=== PATIENT | male | born 1985 | race Caucasian/White ===

== ENCOUNTER → 2017-08-16 | Outpatient (CLI) | payer BC ==
[2017-08-16 08:58] LABS: ALT 50 U/L (21-72); AST 25 U/L (17-59); Albumin 4.5 g/dL (3.5-5.0); Alkaline Phosphatase 46 U/L (38-126); Anion Gap 11 mmol/L; Blood Urea Nitrogen 11 mg/dL (9-20); Calcium 9.8 mg/dL (8.4-10.2); Carbon Dioxide 27 mmol/L (22-30); Chloride 105 mmol/L (98-107); Cholesterol 173 mg/dL (<200); Glucose 94 mg/dL (74-99); HDL Cholesterol 40 mg/dL (40-60); LDL Cholesterol,Calculated 100 mg/dL (0-99); Potassium 4.5 mmol/L (3.5-5.1); Sodium 143 mmol/L (137-145); Total Bilirubin 0.7 mg/dL (0.2-1.3); Total Protein 7.1 g/dL (6.3-8.2); Triglycerides 167 mg/dL (<150)
[2017-08-16 09:01] LABS: Basophils % (A) 1 %; Eosinophils # (A) 0.1 k/uL (0-0.7); Eosinophils % (A) 3 %; HGB 15.2 gm/dL (13.0-17.5); Lymphocytes # (A) 2.3 k/uL (1.0-4.8); Lymphocytes % (A) 45 %; MCH 27.6 pg (25.0-35.0); MCHC 34.5 g/dL (31.0-37.0); MCV 79.9 fL (80.0-100.0); Mean Platelet Volume 7.5; Monocytes # (A) 0.3 k/uL (0-1.0); Monocytes % (A) 6 %; Neutrophils # (A) 2.2 k/uL (1.3-7.7); Neutrophils % (A) 43 %; Platelet Count 233 k/uL (150-450); RBC 5.51 m/uL (4.30-5.90); RDW 13.8 % (11.5-15.5); WBC 5.1 k/uL (3.8-10.6)
== END | disposition home or self-care (01) ==
LOC: LABWHC1 08:32
PROVIDERS: ATTEND Nurse Practitioner Primary Care
DX: Z00.00 Encounter for general adult medical examination without abnormal findings (principal)
CPT/HCPCS: 36415; 80053; 80061; 82306; 84443; 85025

== ENCOUNTER 2020-03-20 12:09 | Emergency (ER) | payer BC, OTHER ==
[2020-03-20 12:33] VITALS: BP 155/106; PULSE 84; RESP 18; TEMP 98
[2020-03-20] MEDS ORDERED: FLUORESCEIN STRIPS 1 MG STRIP RIGHT EYE STA (12:42)
[2020-03-20] MEDS ORDERED: PROPARACAINE 0.5% OPHTH DROPS 15 ML BTL RIGHT EYE STA (12:43)
[2020-03-20] MEDS ORDERED: ERYTHROMYCIN 5 MG/GM OPHTH OINT 1 GM TUBE RIGHT EYE STA (12:43)
--- NOTE | 2020-03-20 13:35 | ED ---
General Adult HPI - General Chief complaint: Eye Problems Stated complaint: [facility]-Eye Pain Time Seen by Provider: 03/20/20 12:42 Source: patient, RN notes reviewed Mode of arrival: ambulatory Limitations: no limitations - History of Present Illness Initial comments: 34-year-old male presents for foreign body in the left eye. Patient states he opened a door at work when the wind blew something into his eye. States he cannot get it out. Patient is up-to-date on tetanus. Denies wearing contacts. Denies any visual changes. Denies any significant pain aside from irritation. States he can actually see the object in his eye.Patient has no other complaints at this time including shortness of breath, chest pain, abdominal pain, nausea or vomiting, headache, or visual changes. - Related Data Allergies Allergy/AdvReac Type Severity Reaction Status Date / Time No Known Allergies Allergy Verified 03/20/20 12:33 Review of Systems ROS Statement: Those systems with pertinent positive or pertinent negative responses have been documented in the HPI. ROS Other: All systems not noted in ROS Statement are negative. Past Medical History Past Medical History: Hypertension History of Any Multi-Drug Resistant Organisms: None Reported Past Surgical History: No Surgical Hx Reported Past Psychological History: No Psychological Hx Reported Smoking Status: Current some day smoker Past Alcohol Use History: None Reported Past Drug Use History: None Reported General Exam Limitations: no limitations General appearance: alert, in no apparent distress Head exam: Present: atraumatic, normocephalic, normal inspection Eye exam: Present: PERRL, EOMI, conjunctival injection (Left), other (Small submillimeter foreign body noted at 6:00 in the left conjunctiva). Absent: scleral icterus, periorbital swelling ENT exam: Present: normal exam, mucous membranes moist Neck exam: Present: normal inspection. Absent: tenderness, meningismus, lymphadenopathy Respiratory exam: Present: normal lung sounds bilaterally. Absent: respiratory distress, wheezes, rales, rhonchi, stridor Cardiovascular Exam: Present: regular rate, normal rhythm, normal heart sounds. Absent: systolic murmur, diastolic murmur, rubs, gallop, clicks Course Vital Signs 03/20/20 12:29 Temperature 98.0 F Pulse Rate 84 Respiratory 18 Rate Blood Pressure 155/106 O2 Sat by Pulse 98 Oximetry Procedures - Forgein Body Removal Eye Site: Left Anesthetic Used: Proparacaine Eye Exam Technique: Mcdonald Lamp Foreign Body Suspected: Wood Forgein Body Removal Technique: Cotton Swab Remaining Debris: No Patient Tolerated: well Medical Decision Making - Medical Decision Making The small submillimeter foreign body in the left conjunctiva was removed using a Q-tip. Wood's lamp was used to visualize the conjunctiva after fluorescein stain. Negative Steve sign. No evidence of foreign bodies elsewhere in the left eye. Patient was given follow-up to ophthalmology. Will return here for any worsening symptoms. Disposition Clinical Impression: Foreign body of conjunctiva, left Disposition: HOME SELF-CARE Condition: Good Instructions (If sedation given, give patient instructions): Eye Foreign Body (ED) Additional Instructions: Please use antibiotic ointment every 6 hours for 7 days. Please follow-up with primary care in 1-2 days. Please return to the emergency room for any worsening symptoms. Is patient prescribed a controlled substance at d/c from ED?: No Referrals: Jono Avina MD [Primary Care Provider] - 1-2 days Laron Lai MD [STAFF PHYSICIAN] - 1-2 days Time of Disposition: 13:31
== END 2020-03-20 14:33 | disposition home or self-care (01) ==
LOC: EC 12:09
DX: T15.12XA Foreign body in conjunctival sac, left eye, initial encounter (principal); F17.200 Nicotine dependence, unspecified, uncomplicated; Y92.69 Other specified industrial and construction area as the place of occurrence of the external cause; Y99.0 Civilian activity done for income or pay
CPT/HCPCS: 65205; 99283

== ENCOUNTER 2020-04-30 17:39 | Emergency (ER) | payer BC ==
[2020-04-30] MEDS ORDERED: DIPH,PERTUS(ACELL)TETVAC-LF 0.5 ML VIAL IM ONE (18:06)
[2020-04-30] MEDS ORDERED: LIDOCAINE 1% INJ 10MG/ML (20 ML MDV) SQ ONE (18:06)
--- NOTE | 2020-04-30 18:14 | ED ---
General Adult HPI - General Chief complaint: Wound/Laceration Stated complaint: Finger lac, pinky Time Seen by Provider: 04/30/20 17:50 Source: patient Mode of arrival: ambulatory Limitations: no limitations - History of Present Illness Initial comments: Dictation was produced using [employer] dictation software. please excuse any grammatical, word or spelling errors. This patient was cared for during a federal and state declared state of emergency secondary to Covid 19 Chief Complaint: 34-year-old male presents with left pinky laceration History of Present Illness: 34-year-old value is helping a friend run electrical to his barn. He states that his distal pinky finger was crushed between 2 plastic pipes. Sensory was significant bleeding at the time. Patient does not recall when his last tetanus shot was. He wrapped his finger with gauze. The ROS documented in this emergency department record has been reviewed and confirmed by me. Those systems with pertinent positive or negative responses have been documented in the HPI. All other systems are other negative and/or noncontributory. PHYSICAL EXAM: General Impression: Alert and oriented x3, not in acute distress HEENT: Normocephalic atraumatic, extra-ocular movements intact, pupils equal and reactive to light bilaterally, mucous membranes moist. Cardiovascular: Heart regular rate and rhythm Chest: Able to complete full sentences, no retractions, no tachypnea Abdomen: abdomen soft, non-tender, non-distended, no organomegaly Musculoskeletal: Pulses present and equal in all extremities, no peripheral edema Left hand: Laceration to the lateral distal pinky. Appears to be lateral to the nail bed. No nail bed injury. Motor: no focal deficits noted Neurological: CN II-XII grossly intact, no focal motor or sensory deficits noted Skin: Intact with no visualized rashes Psych: Normal affect and mood ED course: 34-year-old male presents with pinky laceration secondary to crush injury vital signs upon arrival shows findings within acceptable limits. Patient's tetanus is updated. Finger x-ray is unremarkable. There is a soft tissue deformity noted. Bones are intact. Finger laceration was repaired at bedside using 4-0 nylon. Please see procedure note. Patient will be discharged. Patient instructed to follow- up for suture removal in 10-14 days. He is told to seek medical attention if he develops redness discharge or worsening pain to the wound. - Related Data Previous Rx's Medication Instructions Recorded Erythromycin Ophth Oint [Romycin 1 applic RIGHT EYE QID 7 Days #20 03/20/20 Ophth Oint] gm Allergies Allergy/AdvReac Type Severity Reaction Status Date / Time No Known Allergies Allergy Verified 04/30/20 17:45 Review of Systems ROS Statement: Those systems with pertinent positive or pertinent negative responses have been documented in the HPI. ROS Other: All systems not noted in ROS Statement are negative. Past Medical History Past Medical History: Hypertension History of Any Multi-Drug Resistant Organisms: None Reported Past Surgical History: No Surgical Hx Reported Past Psychological History: No Psychological Hx Reported Smoking Status: Never smoker Past Alcohol Use History: Occasional Past Drug Use History: None Reported General Exam Limitations: no limitations Course Vital Signs 04/30/20 17:43 Temperature 98.5 F Pulse Rate 102 H Respiratory 18 Rate Blood Pressure 147/84 O2 Sat by Pulse 98 Oximetry Procedures - Laceration Laceration #1 Consent Obtained: verbal consent Indication: laceration Site: other (left 5th digit) Description: linear, flap (1 cm) Depth: simple, single layer Anesthetic Used: lidocaine 1% Anesthesia Technique: nerve block (digital nerve block) Pre-repair: irrigated extensively Type of Sutures: nylon Size of Sutures: 4-0 Technique: simple, interrupted Patient Tolerated Procedure: well Disposition Clinical Impression: Laceration Disposition: HOME SELF-CARE Condition: Good Instructions (If sedation given, give patient instructions): Laceration (ED), Care For Your Stitches (ED) Additional Instructions: Please seek medical attention if you're having any worsening discharge redness or pain to the area. Otherwise have her stitches removed in 10-14 days. Is patient prescribed a controlled substance at d/c from ED?: No Referrals: Jono Avina MD [Primary Care Provider] - 1-2 days Time of Disposition: 19:04
--- NOTE | 2020-04-30 18:37 | XR ---
EXAMINATION TYPE: XR finger LT DATE OF EXAM: 04/30/2020 COMPARISON: NONE HISTORY: Laceration TECHNIQUE: 3 views FINDINGS: There is soft tissue deformity at the tip of the little finger. I see no definite fracture or foreign body. IMPRESSION: Soft tissue deformity. No fracture seen.
[2020-04-30] MEDS ORDERED: ACET/COD 300 MG/30 MG STARTER PACK 6 TAB BTL PO STA (19:07)
[2020-04-30 19:29] VITALS: BP 145/102; PULSE 98; RESP 14; TEMP 98
== END 2020-04-30 19:29 | disposition home or self-care (01) ==
LOC: EC 17:39
DX: S61.217A Laceration without foreign body of left little finger without damage to nail, initial encounter (principal); W23.0XXA Caught, crushed, jammed, or pinched between moving objects, initial encounter; Z23 Encounter for immunization
CPT/HCPCS: 73140; 90715; 99282; 90471; 12001; J2001

== ENCOUNTER → 2024-05-29 | Outpatient (CLI) | payer OTHER ==
[2024-05-29 13:14] LABS: Chol/HDL Ratio 4.23 Ratio; LDL Cholesterol,Calculated 52.4 mg/dL (0.0-131.0)
== END | disposition home or self-care (01) ==
LOC: LABWHC1 09:40
PROVIDERS: ATTEND Nurse Practitioner Family
DX: E78.5 Hyperlipidemia, unspecified (principal)
CPT/HCPCS: 36415; 80061

== ENCOUNTER → 2025-02-12 | Outpatient (CLI) | payer OTHER | END | disposition home or self-care (01) | LOC: LABWHC1 08:10 | PROVIDERS: ATTEND Student in an Organized Health Care Education/Training Program | DX: E29.1 Testicular hypofunction (principal); Z79.890 Hormone replacement therapy | CPT/HCPCS: 36415; 82670; 84402; 84403 ==